=== PATIENT | male | born 1960 | race Caucasian/White ===

== ENCOUNTER 2018-09-07 17:28 | Emergency (ER) | payer OTHER ==
[2018-09-07] MEDS ORDERED: Ondansetron 4 MG/2 ML SDV IVPUSH ONE (17:33)
[2018-09-07] MEDS ORDERED: Diphtheria/Tetanus Toxoids,Adult (Td) 0.5 ML SDV IM ONE (17:33)
[2018-09-07] MEDS ORDERED: Lactated Ringers 1,000 ML IV SCH (17:45)
[2018-09-07] MEDS: Sodium Chloride 0.9% 10 ML Syringe FLUSH PRN ×2 (17:45→18:33)
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
[2018-09-07] MEDS ORDERED: Sodium Chloride 0.9% 100 ML IV ONE (18:32)
[2018-09-07] MEDS ORDERED: Iopamidol 612 MG/ML 150 ML Bottle IV SCH (18:45)
[2018-09-07] MEDS ORDERED: Bacitracin Oint 1 GM U/D Packet TOP ONE (18:57)
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
== END 2018-09-07 21:49 | disposition home or self-care (01) ==
LOC: JP.ED 17:28
DX: S06.0X9A Concussion with loss of consciousness of unspecified duration, initial encounter (principal); S60.212A Contusion of left wrist, initial encounter; S60.211A Contusion of right wrist, initial encounter; S50.02XA Contusion of left elbow, initial encounter; S50.01XA Contusion of right elbow, initial encounter; S40.012A Contusion of left shoulder, initial encounter; S40.011A Contusion of right shoulder, initial encounter; S70.02XA Contusion of left hip, initial encounter; S70.01XA Contusion of right hip, initial encounter; S80.02XA Contusion of left knee, initial encounter; S80.01XA Contusion of right knee, initial encounter; S90.32XA Contusion of left foot, initial encounter; S90.31XA Contusion of right foot, initial encounter; V87.8XXA Person injured in other specified noncollision transport accidents involving motor vehicle (traffic), initial encounter; R03.0 Elevated blood-pressure reading, without diagnosis of hypertension; Z79.899 Other long term (current) drug therapy; Z23 Encounter for immunization
CPT/HCPCS: 36415; 70450; 71260; 72125; 73110; 73130; 74177; 80053; 85025; 86850; 86900; 86901; 90471; 90714; 93005; 96361; 96374; 99284; J2405; J7030; J7120